=== PATIENT | male | born 1955 | race Caucasian/White ===

== ENCOUNTER 2017-01-08 19:08 | Emergency (ER) | payer OTHER ==
[~2017-01-08] VITALS: Ht 185.4 cm; Wt 145.1 kg
[~2017-01-08 19:08] MED LIST: ASPI-482 PO; LEVO125T5 PO; LOVA20TA2 PO; METF500T4 PO
[2017-01-08 19:40] LABS: BASO % 0 % (0-3); EOS % 1 % (0-3); HEMATOCRIT 49.5 % (39.0-53.0); HEMOGLOBIN 17.4 g/dL (13.0-17.5); LYMPH # 0.5 x10^3/uL (1.0-4.8); LYMPH % 5 % (24-48); MEAN CORPUSCULAR HEMOGLOBIN 33 pg (25-35); MEAN CORPUSCULAR HGB CONC 35 g/dL (31-37); MEAN CORPUSCULAR VOLUME 92 fL (79-100); MONO % 6 % (0-9); NEUT % 87 % (31-73); PLATELET COUNT 251 x10^3/uL (140-400); RED BLOOD COUNT 5.36 x10^6/uL (4.30-5.70); WHITE BLOOD COUNT 9.2 x10^3/uL (4.0-11.0)
[2017-01-08] MEDS ORDERED: KETOROLAC TROMETHAMINE 30 MG/ML INJ. IV ONE (19:45)
[2017-01-08] MEDS ORDERED: ONDANSETRON PF 4 MG/2 ML VIAL. IV ONE (19:45)
[2017-01-08] MEDS ORDERED: FAMOTIDINE 20 MG/2 ML VIAL IVP ONE (19:45)
[2017-01-08 19:58] LABS: % EOS 1 % (0-5)
[2017-01-08 20:01] LABS: PLT ESTIMATE ADEQUATE (ADEQUATE); TOXIC GRANULATION SLIGHT; TOXIC VACUOLATION MOD
[2017-01-08] MEDS ORDERED: FLAX10003 PO (20:05)
[2017-01-08] MEDS ORDERED: OMEG500C PO (20:05)
[2017-01-08 20:08] LABS: CALCIUM 9.9 mg/dL (8.5-10.1); CREATININE 1.1 mg/dL (0.7-1.3); GFR 68.1; POTASSIUM 3.3 mmol/L (3.5-5.1)
[2017-01-08 20:14] LABS: ALBUMIN 3.2 g/dL (3.4-5.0); ALBUMIN/GLOBULIN RATIO 0.8 (1.0-1.7); TOTAL BILIRUBIN 0.6 mg/dL (0.2-1.0)
[2017-01-08 20:42] LABS: BILIRUBIN,URINE SMALL (NEG); GLUCOSE,URINE NEGATIVE (NEG); NITRITE,URINE NEGATIVE (NEG); PH,URINE 5.5; PROTEIN,URINE NEGATIVE (NEG-TRACE); UROBILINOGEN,URINE 0.2 mg/dL (0.2 mg/dL)
[2017-01-08 20:49] LABS: BACTERIA,URINE FEW /HPF (0-FEW); RBC,URINE OCC /HPF (0-2); SQUAMOUS EPITHELIAL CELL,UR MOD /LPF; WBC,URINE 20-40 /HPF (0-4)
[2017-01-08] MEDS ORDERED: CONTRAST GIVEN MC PRN (21:00)
[2017-01-08] MEDS ORDERED: IOHEXOL 300 MG/ML 75 ML VIAL IV ONE (21:30)
--- NOTE | 2017-01-08 21:40 | RAD ---
Examination: CT of the abdomen pelvis with IV contrast. HISTORY History of nausea, vomiting, abdominal pain COMPARISON 10/04/2016. TECHNIQUE Axial CT images of the abdomen pelvis were performed with IV contrast. Coronal sagittal reformats were performed. Exposure: One or more of the following dose reduction technique were utilized for this examination: 1. Automated exposure control. 2.Adjustment of MA and /or KV according to patient size. 3. Use of iterative reconstruction technique. Findings: Minimal atelectasis identified in the right middle lobe of the lung. Minimal atelectasis identified in the left lingula. The bibasilar lungs are clear. No evidence of free air identified in the abdomen. The visualized liver, spleen, adrenals grossly appears unremarkable. The gallbladder is mildly distended. The stomach is mildly distended with fluid. The visualized pancreas grossly appears unremarkable. Mild fluid distended. Minimally dilated small bowel loops identified in the abdomen. The distal small bowel loops appear collapsed. Feces and gas noted in the colon. Few sigmoid colon diverticulosis. The bilateral kidneys enhance symmetrically. Cystic structure identified in the right kidney measuring 3 centimeters and measures 18 Hounsfield units and a 1.5 centimeter cystic structure in the inferior right kidney, similar to prior exam probably cysts. Faint stranding identified in the mesenteric root region. The urinary bladder is mildly distended. Moderate degenerative changes identified in the visualized thoracolumbar spine. Impression: 1. Mild fluid distended/minimally dilated small bowel loops identified in the proximal and midportion with few collapsed small bowel loops in the distal portion probably partial small bowel obstruction or early small bowel obstruction. 2. 3 centimeter and 1.5 centimeter cystic structures identified in the right kidney similar to prior exam probably a cysts. Electronically signed by: Jordan العلي (Jan 08, 2017 21:39:18)
[2017-01-08 23:08] VITALS: BP 130/80
[2017-01-08] MEDS ORDERED: ONDA4TAB10 SL ×2 (23:15→23:18)
--- NOTE | 2017-01-09 00:14 | ED.ADGEN ---
Past Medical History Past Medical History: Diabetes-Type II, High Cholesterol, Hypothyroid, Other Additional Past Medical Histor: BOWEL OBSTRUCTION Past Surgical History: Other Additional Past Surgical Histo: HEMORROID Alcohol Use: Occasionally Drug Use: None Adult General Chief Complaint Chief Complaint: ABDOMINAL PAIN HPI HPI Patient is a 61 year old with history of ileus presents with nausea, diffuse upper abdominal pain, decreased flatus starting this morning. Patient's waxed and wanes throughout the day. Symptoms feel similar to previous ileus or bowel obstruction earlier this year. Patient denies fever, vomiting, flank pain. No prior abdominal surgeries. No other acute symptoms or complaints Review of Systems Review of Systems Review symptoms as per history of present illness. Current Medications Current Medications Current Medications Medications (Trade) Dose Ordered Sig/Ayleen Start Time Stop Time Status Last Admin Dose Admin Famotidine (Pepcid) 20 mg 1X ONCE 01/08/17 19:45 01/08/17 19:46 DC 01/08/17 19:43 20 MG Info (Do NOT chart on this entry -- for MONITORING) 1 each PRN DAILY PRN 01/08/17 21:00 01/08/17 23:33 DC Iohexol (Omnipaque 300 Mg/ml) 75 ml 1X ONCE 01/08/17 21:30 01/08/17 21:31 DC 01/08/17 21:10 75 ML Ketorolac Tromethamine (Toradol) 30 mg 1X ONCE 01/08/17 19:45 01/08/17 19:46 DC 01/08/17 19:43 30 MG Ondansetron HCl (Zofran) 4 mg 1X ONCE 01/08/17 19:45 01/08/17 19:46 DC 01/08/17 19:43 4 MG Allergies Allergies Allergies Coded Allergies Type Severity Reaction Last Updated Verified fish derived Allergy Severe STOPS BREATHING, HIVES 01/08/17 Yes Physical Exam Physical Exam Constitutional: Well developed, well nourished, no acute distress, non-toxic appearance. [] HENT: Normocephalic, atraumatic, bilateral external ears normal, oropharynx moist, no oral exudates, nose normal. [] Eyes: PERRLA, EOMI, conjunctiva normal, no discharge. [] Neck: Normal range of motion, no tenderness, supple, no stridor. [] Cardiovascular:Heart rate regular rhythm, no murmur [] Lungs & Thorax: Bilateral breath sounds clear to auscultation [] Abdomen soft, mild distention, normal bowel sounds, nondescript abdominal pain with tenderness. No rebound rigidity or guarding. Skin: Warm, dry, no erythema, no rash. [] Back: No tenderness, no CVA tenderness. [] Extremities: No tenderness, no cyanosis, no clubbing, ROM intact, no edema. [] Neurologic: Alert and oriented X 3, normal motor function, normal sensory function, no focal deficits noted. [] Psychologic: Affect normal, judgement normal, mood normal. [] Current Patient Data Vital Signs Vital Signs Date Time Temp Pulse Resp B/P Pulse Ox O2 Delivery O2 Flow Rate FiO2 01/08/17 23:08 96 130/80 93 Room Air 01/08/17 19:10 97.7 24 97.7 Lab Values Laboratory Tests Test 01/08/17 19:24 01/08/17 20:37 White Blood Count 9.2x10^3/uL (4.0-11.0) Red Blood Count 5.36x10^6/uL (4.30-5.70) Hemoglobin 17.4g/dL (13.0-17.5) Hematocrit 49.5% (39.0-53.0) Mean Corpuscular Volume 92fL (79-100) Mean Corpuscular Hemoglobin 33pg (25-35) Mean Corpuscular Hemoglobin Concent 35g/dL (31-37) Red Cell Distribution Width 13.0% (11.5-14.5) Platelet Count 251x10^3/uL (140-400) Neutrophils (%) (Auto) 87% (31-73) H Lymphocytes (%) (Auto) 5% (24-48) L Monocytes (%) (Auto) 6% (0-9) Eosinophils (%) (Auto) 1% (0-3) Basophils (%) (Auto) 0% (0-3) Neutrophils # (Auto) 8.0x10^3uL (1.8-7.7) H Lymphocytes # (Auto) 0.5x10^3/uL (1.0-4.8) L Monocytes # (Auto) 0.5x10^3/uL (0.0-1.1) Eosinophils # (Auto) 0.1x10^3/uL (0.0-0.7) Basophils # (Auto) 0.0x10^3/uL (0.0-0.2) Segmented Neutrophils % 51% (35-66) Band Neutrophils % 35% (0-9) H Lymphocytes % 6% (24-48) L Monocytes % 7% (0-10) Eosinophils % 1% (0-5) Toxic Granulation Slight Toxic Vacuolation Mod Platelet Estimate Adequate (ADEQUATE) Sodium Level 138mmol/L (136-145) Potassium Level 3.3mmol/L (3.5-5.1) L Chloride Level 103mmol/L (98-107) Carbon Dioxide Level 29mmol/L (21-32) Anion Gap 6 (6-14) Blood Urea Nitrogen 21mg/dL (8-26) Creatinine 1.1mg/dL (0.7-1.3) Estimated GFR (Cockcroft-Gault) 68.1 BUN/Creatinine Ratio 19 (6-20) Glucose Level 189mg/dL (70-99) H Calcium Level 9.9mg/dL (8.5-10.1) Total Bilirubin 0.6mg/dL (0.2-1.0) Aspartate Amino Transferase (AST) 45U/L (15-37) H Alanine Aminotransferase (ALT) 33U/L (16-63) Alkaline Phosphatase 103U/L (46-116) Total Protein 7.0g/dL (6.4-8.2) Albumin 3.2g/dL (3.4-5.0) L Albumin/Globulin Ratio 0.8 (1.0-1.7) L Lipase 135U/L (73-393) Urine Collection Type Unknown Urine Color Yellow Urine Clarity Turbid Urine pH 5.5 Urine Specific [place] >=1.030 Urine Protein Negativemg/dL (NEG-TRACE) Urine Glucose (UA) Negativemg/dL (NEG) Urine Ketones (Stick) Tracemg/dL (NEG) Urine Blood Negative (NEG) Urine Nitrite Negative (NEG) Urine Bilirubin Small (NEG) Urine Urobilinogen Dipstick 0.2mg/dL (0.2 mg/dL) Urine Leukocyte Esterase Small (NEG) Urine RBC Occ/HPF (0-2) Urine WBC 20-40/HPF (0-4) Urine Squamous Epithelial Cells Mod/LPF Urine Bacteria Few/HPF (0-FEW) Urine Mucus Marked/LPF Laboratory Tests 01/08/17 19:24 Laboratory Tests 01/08/17 19:24 EKG EKG [] Radiology/Procedures Radiology/Procedures [CT abdomen pelvis: Findings consistent with early or partial small bowel obstruction per radiology report] Impressions: Abdominal pain concerning for partial small bowel obstruction Course & Med Decision Making Course & Med Decision Making Pertinent Labs and Imaging studies reviewed. (See chart for details) [patient was able to relieve himself of this significant amount of flatus in the ED. States he feels much better and wishes to attempt to go home. He is instructed to drink clear liquids, and coded this closest ED should his symptoms worsen. Otherwise, he is instructed to follow-up with his PCP for consideration of GI referral.] Dragon Disclaimer Dragon Disclaimer This electronic medical record was generated, in whole or in part, using a voice recognition dictation system. ANABEL DICK DO Jan 09, 2017 00:14
--- NOTE | 2017-01-09 07:56 | RAD ---
Acute abdomen series History: Shortness of air, abdominal pain beginning today. Comparison: 10/04/2016. Findings: Frontal view of the chest. Cardiac silhouette appears within normal limits for size. No pneumoperitoneum or pneumothorax is identified. No acute infiltrate is seen. Linear atelectasis versus scarring is seen involving the left lung. Supine and upright views of the abdomen. A few loops of small bowel appear mildly dilated up to 4 cm. Gas is seen within the colon. Findings could represent ileus or partial small bowel obstruction. Impression: Ileus versus partial small bowel obstruction.
== END 2017-01-08 23:32 | disposition home or self-care (01) ==
LOC: ER 19:08
DX: R11.2 Nausea with vomiting, unspecified (principal); R10.10 Upper abdominal pain, unspecified; R14.3 Flatulence; E03.9 Hypothyroidism, unspecified; E11.9 Type 2 diabetes mellitus without complications; E78.00 Pure hypercholesterolemia, unspecified; Z91.013 Allergy to seafood
CPT/HCPCS: 36415; 74022; 74177; 80053; 81001; 83690; 85007; 85027; 86141; 87086; 96374; 96375; 99285; J1885; J2405; Q9967; S0028